=== PATIENT | female | born 1990 | race African-American/Black ===

== ENCOUNTER 2016-12-18 17:53 | Emergency (ER) | payer MEDICAID, OTHER ==
[~2016-12-18] VITALS: Ht 160 cm; Wt 49.9 kg
[~2016-12-18 17:53] MED LIST: PREN-385 PO
[2016-12-18 18:11] VITALS: BP 120/76
[2016-12-18 20:03] LABS: APPEARANCE,URINE CLOUDY (CLEAR); BLOOD, URINE NEGATIVE (NEGATIVE); COLOR,URINE YELLOW (YELLOW); LEUKOCYTE ESTERASE ,URINE TRACE (NEGATIVE); NITRITE, URINE POSITIVE (NEGATIVE); PROTEIN,URINE TRACE (NEGATIVE); UGLUCOSE NEGATIVE (NEGATIVE); UROBILINOGEN,URINE >=8.0 EU/dL (0.2 - 1)
[2016-12-18 20:09] LABS: BILIRUBIN,URINE NEGATIVE (NEGATIVE)
[2016-12-18 20:23] LABS: BACTERIA,URINE 4+ /HPF (None Seen); MUCUS,URINE 4+ /LPF (None Seen); RBC,URINE 0-4 /HPF (0-5)
--- NOTE | 2016-12-18 20:25 | NUR ---
TO ER OF2
--- NOTE | 2016-12-18 20:56 | NUR ---
Patient being evaluated by physician.
[2016-12-18] MEDS ORDERED: HYDROcodone/APAP 5/325 MG 1 TAB TAB PO ONE (21:00)
[2016-12-18 21:55] VITALS: BP 112/67
--- NOTE | 2016-12-18 21:55 | NUR ---
Patient discharged with v/s stable. Written and verbal after care instructions given and explained. Patient alert, oriented and verbalized understanding of instructions. Ambulatory with steady gait. All questions addressed prior to discharge. ID band removed. Patient advised to follow up with PMD. Rx of Motrin, [place]ugh 5/325, and Keflex given. Patient educated on indication of medication including possible reaction and side effects. Opportunity to ask questions provided and answered.
== END 2016-12-18 21:55 | disposition home or self-care (01) ==
LOC: MED 17:53
DX: N30.90 Cystitis, unspecified without hematuria (principal)
CPT/HCPCS: 81001; 81025; 87086; 99284

== ENCOUNTER 2017-01-19 22:22 | Emergency (ER) | payer MEDICAID ==
[~2017-01-19] VITALS: Ht 160 cm; Wt 49.4 kg
[2017-01-19 22:31] VITALS: BP 125/90
--- NOTE | 2017-01-19 23:34 | NUR ---
Patient ambulated to bed 06.
--- NOTE | 2017-01-19 23:45 | NUR ---
PATIENT PRESENTS TO ED WITH C/O RIGHT FLANK PAIN WITH VOMITNIG X 1 DAY. PT STATES SHE WAS DX WITH KIDNEY STONES YESTERDAY AT [facility] . DENIES N/D; SKIN IS PINK/WARM/DRY; AAOX4 WITH EVEN AND STEADY GAIT; LUNGS CLEAR BL; HR EVEN AND REGULAR; PT DENIES ANY FEVER, CP, SOB, OR COUGH AT THIS TIME; PATIENT STATES PAIN OF 9/10 AT THIS TIME; VSS; PATIENT POSITIONED FOR COMFORT; HOB ELEVATED; BEDRAILS UP X2; BED DOWN. ER MD MADE AWARE OF PT STATUS.
--- NOTE | 2017-01-20 00:09 | NUR ---
Dr. Grant evaluating patient at bedside.
[2017-01-20] MEDS: ONDANSETRON 4 MG ODT PO ONE (00:39)
[2017-01-20 01:00] VITALS: BP 119/89
--- NOTE | 2017-01-20 01:00 | NUR ---
Patient discharged with v/s stable. Written and verbal after care instructions given and explained. Patient alert, oriented and verbalized understanding of instructions. Ambulatory with steady gait. All questions addressed prior to discharge. ID band removed. Patient advised to follow up with PMD. Rx of ZOFRAN ODT given. Patient educated on indication of medication including possible reaction and side effects. Opportunity to ask questions provided and answered.
== END 2017-01-20 01:00 | disposition home or self-care (01) ==
LOC: MED 22:22
DX: K52.9 Noninfective gastroenteritis and colitis, unspecified (principal)
CPT/HCPCS: 81002; 81025; 99283; S0119

== ENCOUNTER 2017-02-11 22:39 | Emergency (ER) | payer MEDICAID ==
[~2017-02-11] VITALS: Ht 160 cm; Wt 49.9 kg
[2017-02-11 22:53] VITALS: BP 118/77
--- NOTE | 2017-02-11 23:41 | NUR ---
TO ER BED 3
--- NOTE | 2017-02-11 23:43 | NUR ---
27 YO F W/C/O VAGINAL SORENESS, SWELLLING AND WHITE CLEAR DISCHRAGE X 2 DAYS. DENIES ANY INJURY. VSS, NO S/S OF DISTRESS NOTED AT THE MOMEN aT. ER MADE AWARE.
--- NOTE | 2017-02-12 00:10 | NUR ---
Pelvic exam performed by DR ODONNELL with BEL SANCHEZ at bedside for entire examination. Patient tolerated procedure WELL. Patient assisted to position of comfort after examination. NO S/S OF DISTRESS NOTED AFTER PROCEDURE.
--- NOTE | 2017-02-12 01:40 | NUR ---
PT RESTING IN BED, AWATING FOR RESULTS. NO S/S OF DISTRESS NOTED AT THE MOMENT.
[2017-02-12 02:00] LABS: APPEARANCE,URINE SL CLOUDY (CLEAR); BILIRUBIN,URINE NEGATIVE (NEGATIVE); BLOOD, URINE TRACE-I (NEGATIVE); COLOR,URINE YELLOW (YELLOW); LEUKOCYTE ESTERASE ,URINE NEGATIVE (NEGATIVE); NITRITE, URINE NEGATIVE (NEGATIVE); PH,URINE 6.5 (5.0-9.0); PROTEIN,URINE 2+ (NEGATIVE); UGLUCOSE NEGATIVE (NEGATIVE); UROBILINOGEN,URINE 0.2 EU/dL (0.2 - 1)
[2017-02-12 02:05] VITALS: BP 96/67
--- NOTE | 2017-02-12 02:05 | NUR ---
Patient discharged with v/s stable. Written and verbal after care instructions given and explained. Patient alert, oriented and verbalized understanding of instructions. Ambulatory with steady gait. All questions addressed prior to discharge. ID band removed. Patient advised to follow up with PMD OR RETURN TO ER IF CONDITION WORSENS. Rx of NAPROSYN given. Patient educated on indication of medication including possible reaction and side effects. Opportunity to ask questions provided and answered.
[2017-02-12 02:20] LABS: BACTERIA,URINE FEW /HPF (None Seen); MUCUS,URINE 4+ /LPF (None Seen); SQUAMOUS EPITHELIAL CELL,UR 0-3 (FEW) /LPF (0-3 (FEW)); WBC,URINE 0-5 (RARE) /HPF (0-5)
[2017-02-12 02:21] LABS: HYALINE CASTS, URINE 0-3 /LPF (None Seen)
[2017-02-15 07:23] LABS: CHLAMYDIA TRACHOMATIS AMP DNA Negative (Negative)
== END 2017-02-12 02:05 | disposition home or self-care (01) ==
LOC: MED 22:39
DX: N89.8 Other specified noninflammatory disorders of vagina (principal)
CPT/HCPCS: 36415; 81001; 81025; 87210; 87491; 99284

== ENCOUNTER 2017-07-16 19:33 | Emergency (ER) | payer MEDICAID ==
--- NOTE | 2017-07-16 19:55 | NUR ---
CALLED TO BE TRIAGE, NO RESPONSE
--- NOTE | 2017-07-16 20:00 | NUR ---
CALLED TO BE TRIAGE THE 2ND TIME , NO RESPONSE
--- NOTE | 2017-07-16 20:05 | NUR ---
CALLED FOR TRIAGE FOR THE THIRD TIME , NO RESPONSE.PATIENT LEFT WITHOUT BEING SEEN BY DR. HURTADO. NO FURTHER CARE PROVIDED FOR PATIENT.
== END 2017-07-16 19:55 | disposition left against medical advice (07) ==
LOC: MED 19:33
DX: K08.89 Other specified disorders of teeth and supporting structures (principal); Z53.21 Procedure and treatment not carried out due to patient leaving prior to being seen by health care provider

== ENCOUNTER 2019-10-09 01:11 | Emergency (ER) | payer MEDICAID ==
[~2019-10-09] VITALS: Ht 157.5 cm; Wt 51.7 kg
[2019-10-09 01:23] VITALS: BP 108/61
--- NOTE | 2019-10-09 01:50 | NUR ---
29 Y/O F C/O RLQ PAIN X 1 DAY. PER PT, PAIN IS RELIEVED WHEN IN A BALL POSITION. ABDOMEN SOFT AND NON-DISTENDED. LAST IBUPROFEN TAKEN AT 2200 10/08/2019. PT DENIES NAUSEA/VOMITING/DIARRHEA. BED IN LOWEST POSITION, SIDE RAIL UP X1, WILL CONTINUE TO MONITOR.
--- NOTE | 2019-10-09 01:57 | NUR ---
DR. RADFORD EVALUATING PT AT BEDSIDE.
[2019-10-09] MEDS ORDERED: MORPHINE SULFATE 2 MG/ML SYR IVP ONE (02:05)
[2019-10-09] MEDS ORDERED: NACL 0.9% 1,000 ML IV ONE (02:05)
[2019-10-09 02:22] LABS: BASOPHILS % (AUTO) 0.6 % (0.0-2.0); EOSINOPHILS % (AUTO) 0.7 % (0.0-4.0); HEMOGLOBIN 9.3 g/dL (12.0-16.0); LYMPHOCYTES # (AUTO) 2.3 K/uL (2.5-16.5); LYMPHOCYTES % (AUTO) 39.5 % (20.5-51.1); MEAN CORPUSCULAR HEMOGLOBIN 23 pg (27-31); MEAN CORPUSCULAR HGB CONC 31 g/dL (33-37); MEAN CORPUSCULAR VOLUME 72.5 fL (80-94); MONOCYTES # (AUTO) 0.5 K/uL (0.8-1.0); MONOCYTES % (AUTO) 9.4 % (1.7-9.3); NEUTROPHILS # (AUTO) 2.9 K/uL (1.8-7.7); NEUTROPHILS % (AUTO) 49.8 % (42.2-75.2); PLATELET COUNT (AUTO) 329 K/uL (140-450); RED BLOOD CELL COUNT(AUTO) 4.13 MIL/uL (4.20-5.40); RED CELL DISTRIBUTION WIDTH 16.9 % (11.6-13.7); WHITE BLOOD COUNT (AUTO) 5.8 K/uL (4.8-10.8)
[2019-10-09 02:34] LABS: ANION GAP 14.3 (8-16); CARBON DIOXIDE 26.7 mmol/L (21-32); CREATININE 0.8 mg/dL (0.6-1.3)
[2019-10-09 02:40] LABS: ALBUMIN 3.5 g/dL (3.4-5.0); TOTAL BILIRUBIN 0.2 mg/dL (0.0-1.0)
--- NOTE | 2019-10-09 02:45 | NUR ---
PT RESTING IN BED, BED IN LOWEST POSITION, SIDE RAIL UP X1. WILL CONTINUE TO MONITOR.
--- NOTE | 2019-10-09 04:11 | NUR ---
PT TRANSPORTED TO CT VIA WHEELCHAIR.
--- NOTE | 2019-10-09 04:21 | NUR ---
PT BACK FROM CT VIA [facility].
--- NOTE | 2019-10-09 04:53 | NUR ---
PT RESTING IN BED, BED IN LOWEST POSITION, SIDE RAIL UP X1. WILL CONTINUE TO MONITOR.
[2019-10-09 05:37] VITALS: BP 108/61
== END 2019-10-09 05:38 | disposition home or self-care (01) ==
LOC: MED 01:11
DX: R10.813 Right lower quadrant abdominal tenderness (principal); F17.200 Nicotine dependence, unspecified, uncomplicated; F12.90 Cannabis use, unspecified, uncomplicated
CPT/HCPCS: 36415; 74176; 80053; 81002; 81025; 82150; 83690; 85025; 96374; 99284; J2270; 96372; J7030

== ENCOUNTER 2020-05-09 04:25 | Emergency (ER) | payer MEDICAID ==
[~2020-05-09] VITALS: Ht 157.5 cm; Wt 43.1 kg
[2020-05-09 04:32] VITALS: BP 130/91
--- NOTE | 2020-05-09 04:43 | NUR ---
Dr. Mueller examining patient.
--- NOTE | 2020-05-09 04:47 | NUR ---
30 Y/O FEMALE PRESENTED TO ED C/O ABCESS IN RT GUM AREA. OBSERVED WHITE PATCH NOTED. PT STATES SHE HAS HAD THE PAIN FOR 1 MONTH. PT WAS RX ANTIBIOTICS AND GIVEN A PAIN MED. PT STATES IT WENT AWAY BUT IT CAME BACK AND THE PAIN IS NOW 10/10. PT STATES SHE IS SCHEDULED FOR A ROOT CANAL AT THE END OF THIS MONTH. PT RESTING IN BED, LOCKED AND IN LOWEST POSITION, HOB ELEVATED, SIDE RAIL X1. VSS. PMH: CSECTION NKA
[2020-05-09] MEDS ORDERED: KETOROLAC 60 MG/2 ML VIAL IM ONE (04:50)
[2020-05-09] MEDS ORDERED: cefTRIAXone 1,000 MG in LIDOCAINE MPF 1% 2.1 ML IM ONE (04:50)
[2020-05-09] MEDS ORDERED: cefTRIAXone 1,000 MG VIAL ONE (04:51)
[2020-05-09] MEDS ORDERED: LIDOCAINE MPF 1% 5 ML ONE (04:51)
--- NOTE | 2020-05-09 05:13 | NUR ---
Patient discharged with v/s stable. Written and verbal after care instructions given and explained. Patient alert, oriented and verbalized understanding of instructions. Ambulatory with steady gait. All questions addressed prior to discharge. ID band removed. Patient advised to follow up with PMD. Rx of AMOXICILLIN, TRAMADOL & MOTRIN given. Patient educated on indication of medication including possible reaction and side effects. Opportunity to ask questions provided and answered.
[2020-05-09 05:16] VITALS: BP 130/91
== END 2020-05-09 05:13 | disposition home or self-care (01) ==
LOC: MED 04:25
DX: K04.7 Periapical abscess without sinus (principal); R03.0 Elevated blood-pressure reading, without diagnosis of hypertension; F17.200 Nicotine dependence, unspecified, uncomplicated; Z71.6 Tobacco abuse counseling
CPT/HCPCS: 96372; 99284; J0696; J1885; J2001

== ENCOUNTER 2020-09-20 16:01 | Emergency (ER) | payer MEDICAID ==
[~2020-09-20] VITALS: Ht 160 cm; Wt 49.9 kg
[2020-09-20 16:07] VITALS: BP 115/76
[2020-09-20] MEDS ORDERED: KETOROLAC 30 MG/ML VIAL IM ONE (16:10)
--- NOTE | 2020-09-20 16:13 | NUR ---
LEFT LOWER JAW PAIN THAT STARTED YESTERDAY 09/19/20. PAIN DOES NOT RADIATE. 05/06 SHARP, PAINFUL AROUND GUMS AND CHEEKS. NO FEVERS, NO N&V. NO PMH. NKA. DENIES SOB, COUGH, CHEST PAIN OR CONTACT WITH ANYONE COVID POSITIVE. ER PA RECOMMENDS FOLLOW UP WITH DENTIST AND TORODOL INJECTION.
--- NOTE | 2020-09-20 16:23 | NUR ---
Patient discharged with v/s stable. Written and verbal after care instructions given and explained. Patient alert, oriented and verbalized understanding of instructions. Ambulatory with steady gait. All questions addressed prior to discharge. ID band removed. Patient advised to follow up with PMD. Rx of IBUPROFEN, AMOXICILLIN given. Patient educated on indication of medication including possible reaction and side effects. Opportunity to ask questions provided and answered.
[2020-09-20 16:27] VITALS: BP 115/76
== END 2020-09-20 16:23 | disposition home or self-care (01) ==
LOC: MED 16:01
DX: R68.84 Jaw pain (principal); R22.0 Localized swelling, mass and lump, head
CPT/HCPCS: 96372; 99283; J1885

== ENCOUNTER 2023-01-07 10:30 | Emergency (ER) | payer MEDICAID ==
[~2023-01-07] VITALS: Ht 160 cm; Wt 45.4 kg
[2023-01-07 10:34] VITALS: BP 114/71
[2023-01-07 12:17] LABS: BASOPHILS # (AUTO) 0.1 K/uL (0.00-0.22); BASOPHILS % (AUTO) 0.7 % (0.0-2.0); EOSINOPHILS # (AUTO) 0.1 K/uL (0-0.4); HEMATOCRIT 28.2 % (36-48); HEMOGLOBIN 8.8 g/dL (12.0-16.0); LYMPHOCYTES # (AUTO) 2.7 K/uL (2.5-16.5); LYMPHOCYTES % (AUTO) 29.6 % (20.5-51.1); MEAN CORPUSCULAR HEMOGLOBIN 21 pg (27-31); MEAN CORPUSCULAR HGB CONC 31 g/dL (33-37); MEAN CORPUSCULAR VOLUME 68.2 fL (80-94); MONOCYTES # (AUTO) 0.7 K/uL (0.8-1.0); MONOCYTES % (AUTO) 7.4 % (1.7-9.3); NEUTROPHILS # (AUTO) 5.5 K/uL (1.8-7.7); NEUTROPHILS % (AUTO) 61.3 % (42.2-75.2); PLATELET COUNT (AUTO) 376 K/uL (140-450); RED BLOOD CELL COUNT(AUTO) 4.13 MIL/uL (4.20-5.40); RED CELL DISTRIBUTION WIDTH 21.5 % (11.6-13.7)
[2023-01-07 12:34] LABS: ALBUMIN 3.4 g/dL (3.4-5.0); ANION GAP 13.8 (8-16); CARBON DIOXIDE 24.2 mmol/L (21-32); CREATININE 0.6 mg/dL (0.6-1.3); TOTAL BILIRUBIN 0.1 mg/dL (0.0-1.0)
[2023-01-07] MEDS ORDERED: ACET-10509 PO (13:57)
[2023-01-07] MEDS ORDERED: PREN-564 PO (13:57)
[2023-01-07] MEDS ORDERED: CEPH-588 PO (14:21)
[2023-01-07 14:38] VITALS: BP 114/71
--- NOTE | 2023-01-07 14:38 | NUR ---
" i have period cramps that started 2 days ago." " i dont know if im .
--- NOTE | 2023-01-07 14:39 | NUR ---
Patient discharged with v/s stable. Written and verbal after care instructions given and explained. Patient alert, oriented and verbalized understanding of instructions. Ambulatory with steady gait. All questions addressed prior to discharge. ID band removed. Patient advised to follow up with PMD. Rx of TYLENOL, KEFELX, VUT given. Patient educated on indication of medication including possible reaction and side effects. Opportunity to ask questions provided and answered.
[2023-01-07 16:25] LABS: APPEARANCE,URINE CLEAR (CLEAR); BILIRUBIN,URINE NEGATIVE (NEGATIVE); BLOOD, URINE 2+ (NEGATIVE); COLOR,URINE YELLOW (YELLOW); LEUKOCYTE ESTERASE ,URINE 3+ (NEGATIVE); NITRITE, URINE NEGATIVE (NEGATIVE); UGLUCOSE NEGATIVE (NEGATIVE)
[2023-01-07 17:49] LABS: RBC,URINE 11-20 (MOD) /HPF (0-5); YEAST,URINE None Seen /HPF (None Seen)
== END 2023-01-07 14:39 | disposition home or self-care (01) ==
LOC: MED 10:30
DX: O26.891 Other specified pregnancy related conditions, first trimester (principal); Z3A.01 Less than 8 weeks gestation of pregnancy; Z79.899 Other long term (current) drug therapy
CPT/HCPCS: 36415; 76801; 80053; 81001; 81025; 83690; 84702; 85025; 86901; 87086; 99284; Q0092